=== PATIENT | male | born 1950 | race Caucasian/White ===

== ENCOUNTER 2020-06-20 04:40 | Emergency (ER) | payer MEDICARE, MEDICAID ==
[~2020-06-20] VITALS: Ht 175.3 cm; Wt 72.6 kg
[2020-06-20] MEDS ORDERED: MORPHINE SULFATE 4 MG/ML SYR/VIAL IV ONE (06:30)
[2020-06-20] MEDS ORDERED: ONDANSETRON HCL 4 MG/2 ML VIAL IV ONE (06:30)
[2020-06-20] MEDS ORDERED: FUROSEMIDE 40 MG/4 ML VIAL IV ONE (06:45)
[2020-06-20 07:09] LABS: Eosinophils # (auto) 0 10 ^3/uL (0-0.8); Monocytes # (auto) 0.5 10 ^3/uL (0-1.3)
[2020-06-20 07:12] LABS: Basophils # (auto) 0.1 10 ^3/uL (0-0.2); Basophils % (auto) 0.4 % (0.0-2.0); Hematocrit 45.1 % (41.0-53.0); Hemoglobin 15.2 g/dL (13.5-17.5); Lymphocytes # (auto) 0.5 10 ^3/uL (0.4-5.4); Lymphocytes % (auto) 2.8 % (10.0-50.0); Mean Corpuscular Hemoglobin 33.1 pg (28.0-32.0); Mean Corpuscular Hgb Conc. 33.8 g/dL (32.0-36.0); Monocytes % (auto) 2.7 % (0.0-12.0); Neutrophils # (auto) 15.9 10 ^3/uL (1.6-8.6); Neutrophils % (auto) 94.1 % (37.0-80.0); Nucleated Red Blood Cells % 0.1 %; Platelet Count (auto) 487 10^3/uL (140-450); Red Cell Distribution Width 13.7 % (11.8-14.3); White Blood Cell 16.9 10^3/uL (4.4-10.8)
[2020-06-20 07:27] LABS: INR 1.29 (0.9-1.15); Partial Thromboplastin Time 24.7 sec (23.0-31.2)
[2020-06-20 07:34] LABS: Albumin 2.5 g/dL (3.4-5.0); Anion Gap 8 (5-15); Blood Urea Nitrogen 13 mg/dL (7-18); Calcium 8.4 mg/dL (8.5-10.1); Carbon Dioxide 22 mmol/L (21-32); Chloride 108 mmol/L (98-107); Glucose 94 mg/dL (74-106); Potassium 3.7 mmol/L (3.5-5.1); Sodium 138 mmol/L (136-145)
[2020-06-20 07:40] LABS: Alanine Aminotransferase 15 U/L (16-61); Alkaline Phosphatase 82 U/L (45-117); Aspartate Aminotransferase 14 U/L (15-37); BUN/Creatinine Ratio 16.3; Bilirubin, Total 0.9 mg/dL (0.2-1.0); GFR African American 123 mL/min; GFR Non-African American 102 mL/min; Total Protein 7.2 g/dL (6.4-8.2)
[2020-06-20] MEDS ORDERED: PIPERACILLIN-TAZOB 3.375GM 100 ML IV ONE (08:00)
[2020-06-20] MEDS ORDERED: FAMOTIDINE (10MG/ML) 2ML VL IV ONE (08:30)
[2020-06-20 08:41] LABS: Urine Bacteria NONE SEEN /hpf (None Seen); Urine Blood Negative /uL (Negative); Urine Hyaline Cast FEW /lpf (0 - 2); Urine Mucus FEW (None Seen); Urine Specific Gravity 1.013 (1.001-1.035); Urine WBC 1 /hpf (0 - 3)
[2020-06-20 10:50] VITALS: BP 125/56
== END 2020-06-20 11:12 | disposition designated cancer center or children's hospital (05) ==
LOC: ER 04:40 → EDBD 04:40 → ER 11:12
DX: J98.2 Interstitial emphysema (principal); I50.9 Heart failure, unspecified; D72.829 Elevated white blood cell count, unspecified; R60.0 Localized edema
CPT/HCPCS: 36415; 71045; 74176; 80053; 81001; 83880; 84484; 85025; 85610; 85730; 96365; 96366; 96375; 99285; J1940; J2270; J2405; J2543; J3490; 93005

== ENCOUNTER 2020-09-22 16:26 | Inpatient (IN) | payer MEDICARE, MEDICAID ==
[~2020-09-22] VITALS: Ht 185.4 cm; Wt 70.6 kg
[2020-09-22 18:35] LABS: Basophils # (auto) 0 10 ^3/uL (0-0.2); Eosinophils # (auto) 0 10 ^3/uL (0-0.8)
[2020-09-22 18:36] LABS: Basophils % (auto) 0.1 % (0.0-2.0); Lymphocytes % (auto) 4.8 % (10.0-50.0); Mean Corpuscular Hemoglobin 30.8 pg (28.0-32.0); Mean Corpuscular Hgb Conc. 30.5 g/dL (32.0-36.0); Mean Corpuscular Volume 100.9 fL (80.0-100.0); Monocytes # (auto) 1.5 10 ^3/uL (0-1.3); Monocytes % (auto) 7.4 % (0.0-12.0); Neutrophils # (auto) 18.2 10 ^3/uL (1.6-8.6); Neutrophils % (auto) 87.7 % (37.0-80.0); Nucleated Red Blood Cells % 0.5 %; Platelet Count (auto) 342 10^3/uL (140-450); Red Blood Cells 0.89 10^6/uL (4.5-5.90); Red Cell Distribution Width 17.7 % (11.8-14.3); White Blood Cell 20.8 10^3/uL (4.4-10.8)
[2020-09-22 18:44] LABS: Hemoglobin 2.7 g/dL (13.5-17.5)
[2020-09-22 18:45] LABS: Urine Bacteria FEW /hpf (None Seen); Urine Blood Negative /uL (Negative); Urine Hyaline Cast FEW /lpf (0 - 2); Urine Mucus FEW (None Seen); Urine Specific Gravity 1.019 (1.001-1.035); Urine WBC 4 /hpf (0 - 3)
[2020-09-22] MEDS ORDERED: PANTOPRAZOLE 40 MG/10 ML VIAL INJ IV ONE (18:45)
[2020-09-22] MEDS ORDERED: SODIUM CHLORIDE 0.9% 1,000 ML IV ONE (18:45)
[2020-09-22 19:01] LABS: Albumin 2.2 g/dL (3.4-5.0); Calcium 7.6 mg/dL (8.5-10.1); Potassium 4.3 mmol/L (3.5-5.1)
[2020-09-22] MEDS ORDERED: SUCCINYLCHOLINE CHLORIDE 20 MG/ML 10ML VIAL IV ONE ×2 (19:03→21:00)
[2020-09-22] MEDS ORDERED: ETOMIDATE (2MG/ML) 20ML VIAL IV ONE ×2 (19:03→21:00)
[2020-09-22 19:05] LABS: BUN/Creatinine Ratio 35.2; Bilirubin, Total 0.3 mg/dL (0.2-1.0); Total Protein 5.1 g/dL (6.4-8.2)
[2020-09-22] MEDS ORDERED: MIDAZOLAM DRIP 50 mg/50mL 50 ML IV ONE (19:06)
[2020-09-22] MEDS: MIDAZOLAM DRIP 50 mg/50mL 50 ML IV SCH (19:12)
[2020-09-22] MEDS ORDERED: PIPERACILLIN-TAZOB 3.375GM 100 ML IV ONE (19:15)
[2020-09-22] MEDS ORDERED: VANCOMYCIN 1GM/250ML 250 ML IV ONE ×2 (19:15→23:08)
[2020-09-22 19:22] LABS: INR 1.42 (0.9-1.15); Partial Thromboplastin Time < 20.0 sec (23.0-31.2)
[2020-09-22 19:30] VITALS: BP 93/31
[2020-09-22 19:35] VITALS: BP 90/35
[2020-09-22] MEDS ORDERED: NOREPINEPHRINE 8 MG/250ML KIT 250 ML IV ONE (19:41)
[2020-09-22 19:45] VITALS: BP 85/36
[2020-09-22 20:03] LABS: Lactic Acid w/Reflex 18.7 mmol/L (0.4-2.0)
[2020-09-22] MEDS ORDERED: SODIUM BICARBONATE 8.4 % INJ 50ML VIAL IV ONE ×3 (20:15→22:15)
[2020-09-22] MEDS: NOREPINEPHRINE 8 MG/250ML KIT 250 ML IV SCH (21:29)
[2020-09-23] VITALS (96 sets, daily range): BP systolic 90–117; BP diastolic 42–69
[2020-09-23 01:39] LABS: Eosinophils # (auto) 0 10 ^3/uL (0-0.8); Lymphocytes # (auto) 1.7 10 ^3/uL (0.4-5.4); Monocytes # (auto) 0.5 10 ^3/uL (0-1.3); Neutrophils # (auto) 25.3 10 ^3/uL (1.6-8.6); Red Blood Cells 1.98 10^6/uL (4.5-5.90)
[2020-09-23 01:41] LABS: Basophils # (auto) 0.4 10 ^3/uL (0-0.2); Basophils % (auto) 1.4 % (0.0-2.0); Hematocrit 17.6 % (41.0-53.0); Lymphocytes % (auto) 6.1 % (10.0-50.0); Mean Corpuscular Hemoglobin 29.3 pg (28.0-32.0); Mean Corpuscular Hgb Conc. 32.9 g/dL (32.0-36.0); Monocytes % (auto) 1.9 % (0.0-12.0); Neutrophils % (auto) 90.6 % (37.0-80.0); Nucleated Red Blood Cells % 1.3 %; Platelet Count (auto) 282 10^3/uL (140-450); Red Cell Distribution Width 16.1 % (11.8-14.3); White Blood Cell 27.9 10^3/uL (4.4-10.8)
[2020-09-23 01:44] LABS: Hemoglobin 5.8 g/dL (13.5-17.5)
[2020-09-23] MEDS ORDERED: ONDANSETRON HCL 4 MG/2 ML VIAL IV PRN (02:45)
[2020-09-23] MEDS ORDERED: NITROGLYCERIN 0.4 MG SL TAB SL PRN (02:45)
[2020-09-23] MEDS ORDERED: MORPHINE SULF INJ 2 MG/ML SYRINGE 1ML IV PRN (02:45)
[2020-09-23] MEDS ORDERED: VANCOMYCIN PER PHARMACY 0 MG IV SCH (02:45)
[2020-09-23] MEDS: SODIUM CHLORIDE 0.9% 1,000 ML IV SCH ×3 (03:12→23:26)
[2020-09-23] MEDS: PANTOPRAZOLE 40mg/50ML NS AE 50 ML IV SCH ×5 (03:32→23:13)
[2020-09-23] MEDS: OCTREOTIDE ACETATE 500 MCG in SODIUM CHL 0.9% 99 ML IV SCH ×3 (05:00→23:16)
[2020-09-23] MEDS: PIPERACILLIN-TAZOB 3.375GM 100 ML IV SCH ×4 (06:18→23:26)
[2020-09-23 07:58] LABS: Hematocrit 24.7 % (41.0-53.0); Hemoglobin 8.5 g/dL (13.5-17.5)
[2020-09-23] MEDS: NOREPINEPHRINE 8 MG/250ML KIT 250 ML IV SCH (12:26)
[2020-09-23] MEDS: MIDAZOLAM DRIP 50 mg/50mL 50 ML IV SCH ×2 (12:27→19:45)
[2020-09-23 12:30] LABS: Hematocrit 27.3 % (41.0-53.0)
[2020-09-23] MEDS ORDERED: VANCOMYCIN 1GM/250ML 250 ML IV ONE (15:00)
[2020-09-23 15:31] LABS: Hematocrit 26.9 % (41.0-53.0); Hemoglobin 9.2 g/dL (13.5-17.5); Mean Corpuscular Hemoglobin 29.8 pg (28.0-32.0); Mean Corpuscular Volume 87.5 fL (80.0-100.0); Platelet Count (auto) 224 10^3/uL (140-450); Red Blood Cells 3.08 10^6/uL (4.5-5.90); Red Cell Distribution Width 15.4 % (11.8-14.3); White Blood Cell 29.7 10^3/uL (4.4-10.8)
[2020-09-23 15:37] LABS: Basophils % (manual) 0 (0.0-2.0); Blast Cells 0; Eosinophils % (manual) 0 (0-7); Metamyelocytes % 0; Myelocytes % 0; Promyelocytes % 0; Reactive Lymphocytes 0
[2020-09-23 15:44] LABS: Albumin 2.2 g/dL (3.4-5.0); BUN/Creatinine Ratio 29.6; Calcium 6.7 mg/dL (8.5-10.1); Potassium 3.7 mmol/L (3.5-5.1)
[2020-09-23 15:47] LABS: Bilirubin, Total 0.6 mg/dL (0.2-1.0); Total Protein 5.1 g/dL (6.4-8.2)
[2020-09-23 15:51] LABS: % Iron Saturation 2.5 % (20-55)
[2020-09-23 16:22] LABS: Band Neutrophils % (manual) 8; Lymphocytes % (manual) 5 (10.0-50.0); Monocytes % (manual) 2 (0-12)
[2020-09-23 18:36] LABS: Ferritin 39.8 ng/mL (10-322)
[2020-09-23 19:25] LABS: Folate (Folic Acid) 6.61 ng/mL (5.38-24)
[2020-09-23] MEDS: MUPIROCIN 2% OINT 15gm or 22gm EACHNOSTRI SCH (22:00)
[2020-09-24] VITALS (104 sets, daily range): BP systolic 80–116; BP diastolic 41–65
[2020-09-24] MEDS: NOREPINEPHRINE 8 MG/250ML KIT 250 ML IV SCH (01:49)
[2020-09-24] MEDS: MIDAZOLAM DRIP 50 mg/50mL 50 ML IV SCH ×2 (03:05→10:10)
[2020-09-24 03:59] LABS: Basophils # (auto) 0.2 10 ^3/uL (0-0.2); Basophils % (auto) 0.8 % (0.0-2.0); Eosinophils # (auto) 0 10 ^3/uL (0-0.8); Hemoglobin 8.5 g/dL (13.5-17.5); Lymphocytes # (auto) 0.7 10 ^3/uL (0.4-5.4); Lymphocytes % (auto) 2.7 % (10.0-50.0); Mean Corpuscular Hgb Conc. 34.1 g/dL (32.0-36.0); Mean Corpuscular Volume 87.9 fL (80.0-100.0); Monocytes % (auto) 4.1 % (0.0-12.0); Neutrophils # (auto) 22.9 10 ^3/uL (1.6-8.6); Neutrophils % (auto) 92.4 % (37.0-80.0); Nucleated Red Blood Cells % 0.4 %; Platelet Count (auto) 214 10^3/uL (140-450); Red Blood Cells 2.84 10^6/uL (4.5-5.90); Red Cell Distribution Width 15.4 % (11.8-14.3); White Blood Cell 24.8 10^3/uL (4.4-10.8)
[2020-09-24 04:14] LABS: INR 1.23 (0.9-1.15); Partial Thromboplastin Time 28.5 sec (23.0-31.2)
[2020-09-24 04:18] LABS: Potassium 3.6 mmol/L (3.5-5.1)
[2020-09-24 04:24] LABS: Bilirubin, Total 0.5 mg/dL (0.2-1.0); Calcium 6.6 mg/dL (8.5-10.1); Magnesium 2.2 mg/dL (1.6-2.6)
[2020-09-24] MEDS: PANTOPRAZOLE 40mg/50ML NS AE 50 ML IV SCH ×4 (04:38→19:56)
[2020-09-24] MEDS: PIPERACILLIN-TAZOB 3.375GM 100 ML IV SCH ×3 (05:56→18:32)
[2020-09-24] MEDS ORDERED: SACU1TAB PO (10:00)
[2020-09-24] MEDS ORDERED: TRAZ50TA2 PO (10:00)
[2020-09-24] MEDS ORDERED: ATOR40TA52 PO (10:00)
[2020-09-24] MEDS ORDERED: METO25TA5 PO (10:00)
[2020-09-24] MEDS ORDERED: PANT40TA2 PO (10:00)
[2020-09-24] MEDS ORDERED: AMIO200T33 PO (10:00)
[2020-09-24] MEDS ORDERED: NIC21P TOP (10:00)
[2020-09-24] MEDS: OCTREOTIDE ACETATE 500 MCG in SODIUM CHL 0.9% 99 ML IV SCH ×2 (10:10→20:00)
[2020-09-24] MEDS: MUPIROCIN 2% OINT 15gm or 22gm EACHNOSTRI SCH ×2 (10:22→21:45)
[2020-09-24] MEDS: SODIUM CHLORIDE 0.9% 1,000 ML IV SCH ×2 (11:30→23:13)
[2020-09-24 15:22] LABS: Hematocrit 22.3 % (41.0-53.0); Hemoglobin 7.6 g/dL (13.5-17.5)
[2020-09-24] MEDS ORDERED: ALBUMIN 25% 100 ML IV ONE (18:00)
[2020-09-25] VITALS (102 sets, daily range): BP systolic 89–121; BP diastolic 43–64
[2020-09-25] MEDS: PIPERACILLIN-TAZOB 3.375GM 100 ML IV SCH ×5 (00:26→23:56)
[2020-09-25] MEDS: PANTOPRAZOLE 40mg/50ML NS AE 50 ML IV SCH ×5 (01:42→19:50)
[2020-09-25] MEDS: MIDAZOLAM DRIP 50 mg/50mL 50 ML IV SCH ×3 (02:42→19:51)
[2020-09-25] MEDS: SODIUM CHLORIDE 0.9% 1,000 ML IV SCH ×2 (02:43→09:48)
[2020-09-25] MEDS: NOREPINEPHRINE 8 MG/250ML KIT 250 ML IV SCH (02:44)
[2020-09-25 05:53] LABS: Basophils # (auto) 0 10 ^3/uL (0-0.2); Eosinophils # (auto) 0 10 ^3/uL (0-0.8); Hemoglobin 7.3 g/dL (13.5-17.5); Mean Corpuscular Hemoglobin 30.7 pg (28.0-32.0); Mean Corpuscular Hgb Conc. 34.5 g/dL (32.0-36.0); Monocytes # (auto) 0.6 10 ^3/uL (0-1.3); Nucleated Red Blood Cells % 0.4 %; White Blood Cell 21.3 10^3/uL (4.4-10.8)
[2020-09-25 05:57] LABS: Basophils % (auto) 0.1 % (0.0-2.0); Hematocrit 21.1 % (41.0-53.0); Lymphocytes # (auto) 0.8 10 ^3/uL (0.4-5.4); Lymphocytes % (auto) 3.8 % (10.0-50.0); Mean Corpuscular Volume 88.9 fL (80.0-100.0); Monocytes % (auto) 2.8 % (0.0-12.0); Neutrophils # (auto) 19.9 10 ^3/uL (1.6-8.6); Neutrophils % (auto) 93.3 % (37.0-80.0); Platelet Count (auto) 176 10^3/uL (140-450); Red Blood Cells 2.38 10^6/uL (4.5-5.90); Red Cell Distribution Width 15.2 % (11.8-14.3)
[2020-09-25 06:06] LABS: INR 1.11 (0.9-1.15); Partial Thromboplastin Time 30.7 sec (23.0-31.2)
[2020-09-25 06:11] LABS: Calcium 7.2 mg/dL (8.5-10.1); Magnesium 2.5 mg/dL (1.6-2.6); Potassium 3.5 mmol/L (3.5-5.1)
[2020-09-25 06:12] LABS: BUN/Creatinine Ratio 36.6
[2020-09-25] MEDS: OCTREOTIDE ACETATE 500 MCG in SODIUM CHL 0.9% 99 ML IV SCH ×2 (07:04→14:45)
[2020-09-25] MEDS ORDERED: IOHEXOL 350 MG/ML 100ML IJ ONE (08:44)
[2020-09-25] MEDS: MUPIROCIN 2% OINT 15gm or 22gm EACHNOSTRI SCH ×2 (09:48→22:20)
[2020-09-25 16:00] LABS: Hematocrit 20.6 % (41.0-53.0)
[2020-09-25 16:07] LABS: Hemoglobin 7.1 g/dL (13.5-17.5)
[2020-09-25] MEDS ORDERED: TPN PER PHARMACY 0 ML IV SCH (16:45)
[2020-09-25] MEDS ORDERED: AMINO ACID INFUSION IN D10W 1,000 ML IV NR (20:00)
[2020-09-25] MEDS: ACCU-CHEK COMFORT CURVE STRIP VI SCH (23:54)
[2020-09-26] VITALS (102 sets, daily range): BP systolic 88–134; BP diastolic 37–72
[2020-09-26] MEDS ORDERED: DEXTROSE (50%) 50ML SYRG IV SCH
[2020-09-26] MEDS: InsuLIN REG 1unit/0.01ml Soln (100units/ml) SC SCH ×5 (00:19→23:46)
[2020-09-26] MEDS: PANTOPRAZOLE 40mg/50ML NS AE 50 ML IV SCH ×5 (01:33→21:30)
[2020-09-26] MEDS: OCTREOTIDE ACETATE 500 MCG in SODIUM CHL 0.9% 99 ML IV SCH ×4 (03:38→22:48)
[2020-09-26 04:30] LABS: Eosinophils # (auto) 0.1 10 ^3/uL (0-0.8); Eosinophils % (auto) 0.5 % (0.0-7.0); Lymphocytes # (auto) 0.8 10 ^3/uL (0.4-5.4)
[2020-09-26 04:37] LABS: Basophils # (auto) 0 10 ^3/uL (0-0.2); Basophils % (auto) 0.2 % (0.0-2.0); Hematocrit 19.3 % (41.0-53.0); Lymphocytes % (auto) 4.4 % (10.0-50.0); Mean Corpuscular Hemoglobin 30.8 pg (28.0-32.0); Mean Corpuscular Hgb Conc. 34.4 g/dL (32.0-36.0); Mean Corpuscular Volume 89.5 fL (80.0-100.0); Monocytes # (auto) 0.8 10 ^3/uL (0-1.3); Monocytes % (auto) 4.2 % (0.0-12.0); Neutrophils # (auto) 16.7 10 ^3/uL (1.6-8.6); Neutrophils % (auto) 90.7 % (37.0-80.0); Nucleated Red Blood Cells % 0.7 %; Platelet Count (auto) 168 10^3/uL (140-450); Red Blood Cells 2.16 10^6/uL (4.5-5.90); Red Cell Distribution Width 15.3 % (11.8-14.3); White Blood Cell 18.4 10^3/uL (4.4-10.8)
[2020-09-26 04:44] LABS: Hemoglobin 6.6 g/dL (13.5-17.5)
[2020-09-26 04:50] LABS: Albumin 1.8 g/dL (3.4-5.0); Calcium 7.5 mg/dL (8.5-10.1); Magnesium 2.4 mg/dL (1.6-2.6); Potassium 3.1 mmol/L (3.5-5.1)
[2020-09-26 04:56] LABS: BUN/Creatinine Ratio 34.3; Bilirubin, Total 0.5 mg/dL (0.2-1.0); Phosphorus 1.4 mg/dL (2.5-4.90); Pre Albumin 8.6 mg/dL (20.0-40.0); Total Protein 5.1 g/dL (6.4-8.2)
[2020-09-26] MEDS: ACCU-CHEK COMFORT CURVE STRIP VI SCH ×4 (06:06→23:46)
[2020-09-26] MEDS: PIPERACILLIN-TAZOB 3.375GM 100 ML IV SCH ×3 (06:06→18:59)
[2020-09-26] MEDS: MIDAZOLAM DRIP 50 mg/50mL 50 ML IV SCH ×2 (06:50→14:57)
[2020-09-26] MEDS ORDERED: POTASSIUM CHL 20MEQ/100ML 100 ML IV SCH (09:30)
[2020-09-26] MEDS: MUPIROCIN 2% OINT 15gm or 22gm EACHNOSTRI SCH ×2 (09:45→22:48)
[2020-09-26] MEDS ORDERED: POTASSIUM CHL 20MEQ/100ML 100 ML IV ONE (09:45)
[2020-09-26] MEDS ORDERED: POTASSIUM PHOSPHATE 44 MEQ in D5W 5% 250 ML IV ONE ×2 (10:15→12:00)
[2020-09-26] MEDS: NOREPINEPHRINE 8 MG/250ML KIT 250 ML IV SCH (12:39)
[2020-09-26] MEDS ORDERED: IODIXANOL 320MG/ML 100ML BTL IV ONE ×2 (14:57→15:20)
[2020-09-26] MEDS ORDERED: LIDOCAINE 2%HCL (LOCAL ANESTH.) INJ 20ML MDV ONE (14:57)
[2020-09-26] MEDS ORDERED: TPN PER PHARMACY IV NR ×9 (20:00)
[2020-09-26 23:48] LABS: Hematocrit 23.5 % (41.0-53.0)
[2020-09-27] VITALS (107 sets, daily range): BP systolic 91–123; BP diastolic 44–64
[2020-09-27] MEDS: PANTOPRAZOLE 40mg/50ML NS AE 50 ML IV SCH ×5 (02:03→17:36)
[2020-09-27] MEDS: PIPERACILLIN-TAZOB 3.375GM 100 ML IV SCH ×4 (02:03→17:30)
[2020-09-27 04:16] LABS: Basophils # (auto) 0 10 ^3/uL (0-0.2); Eosinophils # (auto) 0.1 10 ^3/uL (0-0.8); Lymphocytes # (auto) 0.7 10 ^3/uL (0.4-5.4); Monocytes # (auto) 0.7 10 ^3/uL (0-1.3)
[2020-09-27 04:18] LABS: Basophils % (auto) 0.3 % (0.0-2.0); Hematocrit 23.5 % (41.0-53.0); Lymphocytes % (auto) 5.5 % (10.0-50.0); Mean Corpuscular Hemoglobin 30.1 pg (28.0-32.0); Mean Corpuscular Hgb Conc. 34.3 g/dL (32.0-36.0); Mean Corpuscular Volume 87.8 fL (80.0-100.0); Monocytes % (auto) 5.2 % (0.0-12.0); Neutrophils # (auto) 11.4 10 ^3/uL (1.6-8.6); Nucleated Red Blood Cells % 0.9 %; Platelet Count (auto) 155 10^3/uL (140-450); Red Blood Cells 2.68 10^6/uL (4.5-5.90); Red Cell Distribution Width 16.9 % (11.8-14.3); White Blood Cell 12.9 10^3/uL (4.4-10.8)
[2020-09-27 04:41] LABS: Potassium 3.2 mmol/L (3.5-5.1)
[2020-09-27 04:50] LABS: Albumin 1.6 g/dL (3.4-5.0); BUN/Creatinine Ratio 35.8; Bilirubin, Total 0.8 mg/dL (0.2-1.0); Calcium 7.5 mg/dL (8.5-10.1); Total Protein 4.9 g/dL (6.4-8.2)
[2020-09-27] MEDS: ACCU-CHEK COMFORT CURVE STRIP VI SCH ×3 (06:23→17:39)
[2020-09-27] MEDS: InsuLIN REG 1unit/0.01ml Soln (100units/ml) SC SCH ×3 (06:24→17:40)
[2020-09-27] MEDS: OCTREOTIDE ACETATE 500 MCG in SODIUM CHL 0.9% 99 ML IV SCH ×2 (08:43→17:35)
[2020-09-27] MEDS: MUPIROCIN 2% OINT 15gm or 22gm EACHNOSTRI SCH ×2 (09:27→22:00)
[2020-09-27] MEDS ORDERED: POTASSIUM PHOSPHATE 44 MEQ in D5W 5% 250 ML IV ONE ×4 (09:30)
[2020-09-27] MEDS ORDERED: POTASSIUM PHOSPHATE 44 MEQ in SODIUM CHL 0.9% 250 ML IV ONE (09:30)
[2020-09-27] MEDS: MIDAZOLAM DRIP 50 mg/50mL 50 ML IV SCH (12:45)
[2020-09-27] MEDS ORDERED: CLINIMIX PER PHARMACY 0 ML IV SCH (14:45)
[2020-09-27] MEDS ORDERED: TPN PER PHARMACY IV NR ×9 (20:00)
[2020-09-28] VITALS (99 sets, daily range): BP systolic 90–129; BP diastolic 45–65
[2020-09-28] MEDS: PIPERACILLIN-TAZOB 3.375GM 100 ML IV SCH ×4 (00:18→17:41)
[2020-09-28] MEDS: ACCU-CHEK COMFORT CURVE STRIP VI SCH ×4 (02:45→17:32)
[2020-09-28] MEDS: PANTOPRAZOLE 40mg/50ML NS AE 50 ML IV SCH ×6 (02:58→23:13)
[2020-09-28 04:10] LABS: Basophils # (auto) 0 10 ^3/uL (0-0.2); Basophils % (auto) 0.1 % (0.0-2.0); Lymphocytes # (auto) 0.8 10 ^3/uL (0.4-5.4)
[2020-09-28 04:11] LABS: Eosinophils # (auto) 0.3 10 ^3/uL (0-0.8); Eosinophils % (auto) 1.9 % (0.0-7.0); Hematocrit 23.7 % (41.0-53.0); Hemoglobin 7.8 g/dL (13.5-17.5); Lymphocytes % (auto) 5.9 % (10.0-50.0); Mean Corpuscular Volume 88.1 fL (80.0-100.0); Monocytes # (auto) 0.9 10 ^3/uL (0-1.3); Monocytes % (auto) 6.5 % (0.0-12.0); Neutrophils # (auto) 11.6 10 ^3/uL (1.6-8.6); Neutrophils % (auto) 85.6 % (37.0-80.0); Nucleated Red Blood Cells % 0.5 %; Platelet Count (auto) 161 10^3/uL (140-450); Red Cell Distribution Width 16.7 % (11.8-14.3); White Blood Cell 13.6 10^3/uL (4.4-10.8)
[2020-09-28 04:21] LABS: Calcium 7.6 mg/dL (8.5-10.1); Potassium 3.4 mmol/L (3.5-5.1)
[2020-09-28 04:27] LABS: Albumin 1.6 g/dL (3.4-5.0); BUN/Creatinine Ratio 46.3; Bilirubin, Total 0.8 mg/dL (0.2-1.0); Magnesium 1.9 mg/dL (1.6-2.6); Phosphorus 2.3 mg/dL (2.5-4.90); Total Protein 4.9 g/dL (6.4-8.2)
[2020-09-28] MEDS: InsuLIN REG 1unit/0.01ml Soln (100units/ml) SC SCH ×4 (05:34→17:38)
[2020-09-28] MEDS ORDERED: VANCOMYCIN PER PHARMACY 0 MG IV SCH (09:30)
[2020-09-28] MEDS ORDERED: VANCOMYCIN 1GM/250ML 250 ML IV ONE (09:30)
[2020-09-28] MEDS ORDERED: POTASSIUM CHL 20MEQ/100ML 100 ML IV ONE (09:30)
[2020-09-28] MEDS: MIDAZOLAM DRIP 50 mg/50mL 50 ML IV SCH ×2 (09:45→23:14)
[2020-09-28] MEDS: MUPIROCIN 2% OINT 15gm or 22gm EACHNOSTRI SCH (09:45)
[2020-09-28] MEDS: OCTREOTIDE ACETATE 500 MCG in SODIUM CHL 0.9% 99 ML IV SCH ×2 (12:44→23:13)
[2020-09-28 17:49] LABS: Hemoglobin 7.6 g/dL (13.5-17.5)
[2020-09-28 17:51] LABS: Hematocrit 22.6 % (41.0-53.0)
[2020-09-28] MEDS: VANCOMYCIN 1GM/250ML 250 ML IV SCH (17:55)
[2020-09-28] MEDS ORDERED: TPN PER PHARMACY IV NR ×9 (20:00)
[2020-09-28] MEDS: NOREPINEPHRINE 8 MG/250ML KIT 250 ML IV SCH (21:00)
[2020-09-29] VITALS (110 sets, daily range): BP systolic 62–124; BP diastolic 36–64
[2020-09-29] MEDS: ACCU-CHEK COMFORT CURVE STRIP VI SCH ×4 (00:01→17:45)
[2020-09-29] MEDS: PIPERACILLIN-TAZOB 3.375GM 100 ML IV SCH ×4 (00:01→17:44)
[2020-09-29] MEDS: InsuLIN REG 1unit/0.01ml Soln (100units/ml) SC SCH ×4 (00:02→17:53)
[2020-09-29] MEDS: VANCOMYCIN 1GM/250ML 250 ML IV SCH ×3 (02:06→20:45)
[2020-09-29 04:58] LABS: Basophils # (auto) 0 10 ^3/uL (0-0.2); Eosinophils # (auto) 0.4 10 ^3/uL (0-0.8); Hemoglobin 7.3 g/dL (13.5-17.5); Mean Corpuscular Hemoglobin 30.2 pg (28.0-32.0); Neutrophils # (auto) 10.7 10 ^3/uL (1.6-8.6); Platelet Count (auto) 152 10^3/uL (140-450)
[2020-09-29 05:01] LABS: Basophils % (auto) 0.2 % (0.0-2.0); Eosinophils % (auto) 3.4 % (0.0-7.0); Hematocrit 21.3 % (41.0-53.0); Lymphocytes # (auto) 0.8 10 ^3/uL (0.4-5.4); Lymphocytes % (auto) 6.1 % (10.0-50.0); Mean Corpuscular Hgb Conc. 34.2 g/dL (32.0-36.0); Mean Corpuscular Volume 88.2 fL (80.0-100.0); Monocytes # (auto) 1.1 10 ^3/uL (0-1.3); Monocytes % (auto) 8.3 % (0.0-12.0); Nucleated Red Blood Cells % 0.3 %; Red Blood Cells 2.42 10^6/uL (4.5-5.90); Red Cell Distribution Width 16.4 % (11.8-14.3)
[2020-09-29 05:14] LABS: Albumin 1.5 g/dL (3.4-5.0); Calcium 7.4 mg/dL (8.5-10.1); Magnesium 1.8 mg/dL (1.6-2.6); Potassium 3.6 mmol/L (3.5-5.1)
[2020-09-29 05:18] LABS: BUN/Creatinine Ratio 41.3; Bilirubin, Total 0.9 mg/dL (0.2-1.0); Phosphorus 2.5 mg/dL (2.5-4.90); Total Protein 4.8 g/dL (6.4-8.2)
[2020-09-29] MEDS: OCTREOTIDE ACETATE 500 MCG in SODIUM CHL 0.9% 99 ML IV SCH ×3 (05:40→20:00)
[2020-09-29] MEDS: PANTOPRAZOLE 40mg/50ML NS AE 50 ML IV SCH ×4 (05:40→20:00)
[2020-09-29] MEDS: NOREPINEPHRINE 8 MG/250ML KIT 250 ML IV SCH ×2 (10:15→20:41)
[2020-09-29] MEDS: MIDAZOLAM DRIP 50 mg/50mL 50 ML IV SCH ×2 (14:44→20:47)
[2020-09-29 18:39] LABS: Hematocrit 21.7 % (41.0-53.0); Hemoglobin 7.5 g/dL (13.5-17.5)
[2020-09-29] MEDS ORDERED: TPN PER PHARMACY IV NR ×10 (20:00)
[2020-09-29] MEDS ORDERED: PHENYLEPHRINE IV 250 ML IV ONE (21:15)
[2020-09-29] MEDS ORDERED: VASOPRESSIN 20 UNIT/ML ONE ×2 (21:22→22:38)
[2020-09-29 22:07] LABS: Basophils # (auto) 0.1 10 ^3/uL (0-0.2); Hematocrit 16.2 % (41.0-53.0); Red Blood Cells 1.79 10^6/uL (4.5-5.90)
[2020-09-29 22:10] LABS: Basophils % (auto) 0.5 % (0.0-2.0); Eosinophils # (auto) 0.3 10 ^3/uL (0-0.8); Eosinophils % (auto) 1.5 % (0.0-7.0); Lymphocytes # (auto) 1.2 10 ^3/uL (0.4-5.4); Lymphocytes % (auto) 7.1 % (10.0-50.0); Mean Corpuscular Hemoglobin 30.5 pg (28.0-32.0); Mean Corpuscular Hgb Conc. 33.7 g/dL (32.0-36.0); Mean Corpuscular Volume 90.4 fL (80.0-100.0); Monocytes # (auto) 0.7 10 ^3/uL (0-1.3); Neutrophils # (auto) 14.3 10 ^3/uL (1.6-8.6); Neutrophils % (auto) 86.9 % (37.0-80.0); Nucleated Red Blood Cells % 0.9 %; Platelet Count (auto) 176 10^3/uL (140-450); Red Cell Distribution Width 16.6 % (11.8-14.3); White Blood Cell 16.4 10^3/uL (4.4-10.8)
[2020-09-29] MEDS: VASOPRESSIN 50 UNITS in D5W 5% 247.5 ML IV SCH (22:16)
[2020-09-29 22:24] LABS: Hemoglobin 5.5 g/dL (13.5-17.5)
[2020-09-29] MEDS ORDERED: levETIRAcetam 500 MG/5ML INJ IV ONE (22:37)
[2020-09-30] VITALS (115 sets, daily range): BP systolic 86–156; BP diastolic 42–66
[2020-09-30] MEDS: ACCU-CHEK COMFORT CURVE STRIP VI SCH ×4 (00:12→18:24)
[2020-09-30] MEDS: PIPERACILLIN-TAZOB 3.375GM 100 ML IV SCH ×4 (00:12→18:23)
[2020-09-30] MEDS: InsuLIN REG 1unit/0.01ml Soln (100units/ml) SC SCH ×4 (00:13→18:25)
[2020-09-30 00:28] LABS: INR 1.35 (0.9-1.15); Partial Thromboplastin Time 27.8 sec (23.0-31.2)
[2020-09-30] MEDS: PANTOPRAZOLE 40mg/50ML NS AE 50 ML IV SCH ×4 (00:53→16:27)
[2020-09-30] MEDS: OCTREOTIDE ACETATE 500 MCG in SODIUM CHL 0.9% 99 ML IV SCH ×2 (00:54→16:26)
[2020-09-30] MEDS: NOREPINEPHRINE 8 MG/250ML KIT 250 ML IV SCH (01:03)
[2020-09-30] MEDS: VANCOMYCIN 1GM/250ML 250 ML IV SCH ×3 (05:06→21:05)
[2020-09-30 06:59] LABS: Eosinophils # (auto) 0.1 10 ^3/uL (0-0.8); Lymphocytes # (auto) 1.1 10 ^3/uL (0.4-5.4); Neutrophils % (auto) 86.7 % (37.0-80.0); Nucleated Red Blood Cells % 0.1 %
[2020-09-30 07:00] LABS: Basophils # (auto) 0 10 ^3/uL (0-0.2); Basophils % (auto) 0.2 % (0.0-2.0); Eosinophils % (auto) 0.6 % (0.0-7.0); Hemoglobin 7.9 g/dL (13.5-17.5); Lymphocytes % (auto) 6.6 % (10.0-50.0); Mean Corpuscular Hgb Conc. 34.1 g/dL (32.0-36.0); Mean Corpuscular Volume 87.9 fL (80.0-100.0); Monocytes % (auto) 5.9 % (0.0-12.0); Neutrophils # (auto) 14.9 10 ^3/uL (1.6-8.6); Platelet Count (auto) 142 10^3/uL (140-450); Red Blood Cells 2.62 10^6/uL (4.5-5.90); Red Cell Distribution Width 14.7 % (11.8-14.3); White Blood Cell 17.2 10^3/uL (4.4-10.8)
[2020-09-30 07:15] LABS: Albumin 1.5 g/dL (3.4-5.0); Calcium 6.8 mg/dL (8.5-10.1); Potassium 3.9 mmol/L (3.5-5.1)
[2020-09-30 07:19] LABS: BUN/Creatinine Ratio 37.3; Bilirubin, Total 1.2 mg/dL (0.2-1.0); Phosphorus 3.1 mg/dL (2.5-4.90); Total Protein 4.4 g/dL (6.4-8.2)
[2020-09-30] MEDS: MIDAZOLAM DRIP 50 mg/50mL 50 ML IV SCH ×2 (09:10→16:27)
[2020-09-30 13:59] LABS: Hemoglobin 7.5 g/dL (13.5-17.5)
[2020-09-30 14:03] LABS: Hematocrit 22.1 % (41.0-53.0)
[2020-09-30] MEDS: ALBUMIN 25% 100 ML IV SCH (16:25)
[2020-09-30 19:03] LABS: Hemoglobin 7.1 g/dL (13.5-17.5)
[2020-09-30 19:05] LABS: Hematocrit 20.5 % (41.0-53.0)
[2020-09-30] MEDS ORDERED: TPN PER PHARMACY IV NR ×11 (20:00)
[2020-09-30] MEDS: VASOPRESSIN 50 UNITS in D5W 5% 247.5 ML IV SCH (21:30)
[2020-10-01] VITALS (109 sets, daily range): BP systolic 101–146; BP diastolic 48–71
[2020-10-01] MEDS: ALBUMIN 25% 100 ML IV SCH ×2 (00:10→08:59)
[2020-10-01] MEDS: ACCU-CHEK COMFORT CURVE STRIP VI SCH ×4 (00:10→18:02)
[2020-10-01] MEDS: PIPERACILLIN-TAZOB 3.375GM 100 ML IV SCH ×4 (00:10→18:11)
[2020-10-01] MEDS: InsuLIN REG 1unit/0.01ml Soln (100units/ml) SC SCH ×4 (00:26→18:20)
[2020-10-01 00:37] LABS: Hematocrit 20.5 % (41.0-53.0)
[2020-10-01] MEDS: NOREPINEPHRINE 8 MG/250ML KIT 250 ML IV SCH (01:00)
[2020-10-01] MEDS: MIDAZOLAM DRIP 50 mg/50mL 50 ML IV SCH ×4 (01:00→19:07)
[2020-10-01] MEDS: OCTREOTIDE ACETATE 500 MCG in SODIUM CHL 0.9% 99 ML IV SCH ×3 (01:00→20:00)
[2020-10-01 01:09] LABS: Hemoglobin 6.9 g/dL (13.5-17.5)
[2020-10-01] MEDS ORDERED: PANTOPRAZOLE 40 MG/10 ML VIAL INJ IV ONE ×2 (01:22→06:31)
[2020-10-01] MEDS: PANTOPRAZOLE 40mg/50ML NS AE 50 ML IV SCH ×5 (04:05→21:37)
[2020-10-01] MEDS: VANCOMYCIN 1GM/250ML 250 ML IV SCH ×2 (05:09→12:37)
[2020-10-01 06:24] LABS: Hematocrit 24.5 % (41.0-53.0); Hemoglobin 8.7 g/dL (13.5-17.5)
[2020-10-01 06:45] LABS: Albumin 2.1 g/dL (3.4-5.0); Calcium 7.5 mg/dL (8.5-10.1); Magnesium 2.2 mg/dL (1.6-2.6); Potassium 3.8 mmol/L (3.5-5.1)
[2020-10-01 06:50] LABS: Bilirubin, Total 1.7 mg/dL (0.2-1.0); Phosphorus 2.3 mg/dL (2.5-4.90); Total Protein 4.9 g/dL (6.4-8.2)
[2020-10-01 12:05] LABS: Hematocrit 21.1 % (41.0-53.0); Hemoglobin 7.2 g/dL (13.5-17.5)
[2020-10-01 12:33] LABS: Hemoglobin 8.2 g/dL (13.5-17.5)
[2020-10-01 12:35] LABS: Hematocrit 23.6 % (41.0-53.0)
[2020-10-01] MEDS ORDERED: ALBUMIN 25% 100 ML IV ONE (13:00)
[2020-10-01] MEDS ORDERED: VANCOMYCIN 1GM/250ML 250 ML IV SCH (17:00)
[2020-10-01] MEDS ORDERED: FAT EMULSION IV NR ×11 (20:00)
[2020-10-01] MEDS ORDERED: POTASSIUM ACETATE IV NR ×11 (20:00)
[2020-10-01] MEDS ORDERED: SODIUM ACETATE IV NR ×11 (20:00)
[2020-10-01] MEDS ORDERED: [UNRECOGNIZED DRUG - OTHER] IV NR ×11 (20:00)
== END 2020-10-01 23:51 | disposition short-term general hospital (02) | DRG 356 ==
LOC: ER 16:26 → EDBD 16:26 → TELE 09-23 02:36 → ICU WEST 09-23 04:00
PROVIDERS: ADMIT Nurse Practitioner; ATTEND Internal Medicine
PROC: 5A1955Z Respiratory Ventilation, Greater than 96 Consecutive Hours (ICD-10-PCS; principal; 2020-09-22)
PROC: 0BH17EZ Insertion of Endotracheal Airway into Trachea, Via Natural or Artificial Opening (ICD-10-PCS; 2020-09-22)
PROC: 02HV33Z Insertion of Infusion Device into Superior Vena Cava, Percutaneous Approach (ICD-10-PCS; 2020-09-22)
PROC: 30233N1 Transfusion of Nonautologous Red Blood Cells into Peripheral Vein, Percutaneous Approach (ICD-10-PCS; 2020-09-22)
PROC: 0T9B70Z Drainage of Bladder with Drainage Device, Via Natural or Artificial Opening (ICD-10-PCS; 2020-09-22)
PROC: 30233K1 Transfusion of Nonautologous Frozen Plasma into Peripheral Vein, Percutaneous Approach (ICD-10-PCS; 2020-09-23)
PROC: 0DB68ZX Excision of Stomach, Via Natural or Artificial Opening Endoscopic, Diagnostic (ICD-10-PCS; 2020-09-25)
PROC: 0W3P8ZZ Control Bleeding in Gastrointestinal Tract, Via Natural or Artificial Opening Endoscopic (ICD-10-PCS; 2020-09-25)
PROC: 05H933Z Insertion of Infusion Device into Right Brachial Vein, Percutaneous Approach (ICD-10-PCS; 2020-09-26)
PROC: B54MZZA Ultrasonography of Right Upper Extremity Veins, Guidance (ICD-10-PCS; 2020-09-26)
PROC: 04L33DZ Occlusion of Hepatic Artery with Intraluminal Device, Percutaneous Approach (ICD-10-PCS; 2020-09-27)
PROC: B410YZZ Fluoroscopy of Abdominal Aorta using Other Contrast (ICD-10-PCS; 2020-09-27)
PROC: B414YZZ Fluoroscopy of Superior Mesenteric Artery using Other Contrast (ICD-10-PCS; 2020-09-27)
PROC: B41JYZZ Fluoroscopy of Other Lower Arteries using Other Contrast (ICD-10-PCS; 2020-09-27)
PROC: 30233N1 Transfusion of Nonautologous Red Blood Cells into Peripheral Vein, Percutaneous Approach (ICD-10-PCS; 2020-09-29)
DX: K26.4 Chronic or unspecified duodenal ulcer with hemorrhage (principal); R57.1 Hypovolemic shock; E43 Unspecified severe protein-calorie malnutrition; I50.23 Acute on chronic systolic (congestive) heart failure; D68.9 Coagulation defect, unspecified; E87.2 Acidosis; Z68.1 Body mass index [BMI] 19.9 or less, adult; N17.9 Acute kidney failure, unspecified; K29.71 Gastritis, unspecified, with bleeding; Z20.822 Contact with and (suspected) exposure to COVID-19; D64.9 Anemia, unspecified; K52.9 Noninfective gastroenteritis and colitis, unspecified; I25.10 Atherosclerotic heart disease of native coronary artery without angina pectoris; K44.9 Diaphragmatic hernia without obstruction or gangrene; F17.210 Nicotine dependence, cigarettes, uncomplicated; E87.6 Hypokalemia; Z79.899 Other long term (current) drug therapy; Z79.891 Long term (current) use of opiate analgesic; Z79.01 Long term (current) use of anticoagulants
CPT/HCPCS: 31500; 36415; 36556; 36600; 71045; 74176; 75635; 76942; 80048; 80053; 80202; 81001; 82040; 82271; 82607; 82728; 82746; 82805; 82962; 83540; 83550; 83605; 83735; 83880; 84100; 84478; 85007; 85014; 85018; 85025; 85027; 85610; 85730; 86850; 86900; 86901; 86920; 87040; 87070; 87077; 87081; 87186; 87205; 87426; 93005; 93306; 94002; 94003; 96365; 96367; 96375; 99152; 99153; 99291; C1889; C9113; G0378; J0330; J1815; J2250; J2543; J3480; J7060; P9047; Q9967